=== PATIENT | female | born 1980 | race Caucasian/White ===

== ENCOUNTER → 2021-02-09 | Outpatient (REF) | LOC: M LABSMTC 10:53 | PROVIDERS: ATTEND Pediatrics | DX: Z11.52 Encounter for screening for COVID-19 (principal); Z20.822 Contact with and (suspected) exposure to COVID-19 ==

== ENCOUNTER → 2021-03-13 | Outpatient (REF) | LOC: M LABSMTC 09:12 | PROVIDERS: ATTEND Pediatrics | DX: Z20.828 Contact with and (suspected) exposure to other viral communicable diseases (principal) ==

== ENCOUNTER → 2021-09-19 | Outpatient (CLI) | payer BC | LOC: M WUC 10:07 | PROVIDERS: ATTEND Physician Assistant | DX: M54.31 Sciatica, right side (principal) ==

== ENCOUNTER 2021-10-03 15:28 | Emergency (ER) | payer BC ==
[~2021-10-03] VITALS: Ht 165.1 cm; Wt 90.4 kg
[2021-10-03] MEDS ORDERED: PRED10TA2 (15:40)
[2021-10-03] MEDS ORDERED: CYCL-707 (15:40)
[2021-10-03] MEDS ORDERED: KETOROLAC 30 MG/ML 1ML VIAL IV ONE (20:30)
[2021-10-03 21:13] LABS: BASO # 0.1 10^3/uL (0.0-0.2); BASO % 0.5 % (0.0-1.0); EOS # 0.1 10^3/uL (0.0-0.5); EOS % 0.7 % (0.0-3.0); HEMATOCRIT 41.8 % (36.0-47.0); HEMOGLOBIN 13.6 g/dl (12.0-15.5); LYMPH # 5.2 10^3/uL (1.5-5.0); LYMPH % 28.7 % (24.0-44.0); MEAN CORPUSCULAR HEMOGLOBIN 27.9 pg (27.0-33.0); MEAN CORPUSCULAR HGB CONC 32.5 g/dl (32.0-36.5); MEAN CORPUSCULAR VOLUME 85.8 fl (80.0-96.0); MONO % 8.7 % (2.0-8.0); NEUTROPHILS % 60.7 % (36.0-66.0); PLATELET COUNT, AUTOMATED 348 10^3/uL (150-450); RED BLOOD COUNT 4.87 10^6/uL (4.00-5.40); WHITE BLOOD COUNT 18.2 10^3/uL (4.0-10.0)
[2021-10-03 21:28] LABS: MONO # 1.6 10^3/uL (0.0-0.8)
[2021-10-03 21:47] LABS: BLOOD UREA NITROGEN 15 MG/DL (7-18); CALCIUM LEVEL 9.8 MG/DL (8.5-10.1); CARBON DIOXIDE LEVEL 29 MEQ/L (21-32); CHLORIDE LEVEL 106 MEQ/L (98-107); CREATININE FOR GFR 0.95 MG/DL (0.55-1.30); GLOMERULAR FILTRATION RATE > 60.0 (>60); GLUCOSE, FASTING 104 MG/DL (70-100); POTASSIUM SERUM 3.7 MEQ/L (3.5-5.1); SODIUM LEVEL 141 MEQ/L (136-145)
[2021-10-03 21:50] LABS: HCG, SERUM QUALITATIVE NEGATIVE (NEGATIVE)
[2021-10-03 22:02] VITALS: BP 155/90
== END 2021-10-03 22:56 | disposition home or self-care (01) ==
LOC: M ED 15:28
DX: M54.40 Lumbago with sciatica, unspecified side (principal); F17.200 Nicotine dependence, unspecified, uncomplicated
CPT/HCPCS: 72148; 80048; 84703; 85025; 96374; 99284; J1885

== ENCOUNTER 2021-11-03 14:27 | Outpatient (RCR) | payer BC ==
[~2021-11-03 14:27] MED LIST: CYCL-707; PRED10TA2
== END 2021-11-24 ==
LOC: M PT 14:27
DX: M54.50 Low back pain, unspecified (principal)

== ENCOUNTER → 2021-11-08 | Outpatient (CLI) | payer BC, OTHER | LOC: M RAD 16:41 | PROVIDERS: ATTEND Internal Medicine | DX: E04.9 Nontoxic goiter, unspecified (principal) ==

== ENCOUNTER → 2022-01-09 | Outpatient (REF) | LOC: M LABSMTC 09:40 | PROVIDERS: ATTEND Family Medicine | DX: Z20.822 Contact with and (suspected) exposure to COVID-19 (principal) ==

== ENCOUNTER → 2023-08-26 | Outpatient (REF) | LOC: M EMP 15:00 | PROVIDERS: ATTEND Family Medicine | DX: Z11.52 Encounter for screening for COVID-19 (principal) ==